=== PATIENT | female | born 1975 | race Caucasian/White ===

== ENCOUNTER 2016-09-14 12:12 | Emergency (ER) | payer OTHER ==
[2016-09-14 13:59] LABS: RED BLOOD COUNT 4.47 M/UL (4.00-5.10); WHITE BLOOD COUNT 8.1 K/UL (4.5-11.0)
[2016-09-14 14:15] LABS: BUN/CREATININE RATIO 16 (0-10)
== END 2016-09-14 15:20 | disposition home or self-care (01) ==
LOC: ER1 12:12
PROVIDERS: Nurse Practitioner Family
DX: J40 Bronchitis, not specified as acute or chronic (principal); B34.9 Viral infection, unspecified; F17.210 Nicotine dependence, cigarettes, uncomplicated; Z21 Asymptomatic human immunodeficiency virus [HIV] infection status; Z79.899 Other long term (current) drug therapy; Z88.5 Allergy status to narcotic agent
CPT/HCPCS: 71020; 80053; 81001; 84703; 85025; 87081; 87086; 87880; 99283

== ENCOUNTER 2021-01-13 21:56 | Inpatient (IN) | payer OTHER ==
[~2021-01-13] VITALS: Ht 154.9 cm; Wt 63.2 kg
[~2021-01-13 21:56] MED LIST: BACTRIM DS TAB1 EACH PO; FLAGYL500 MG PO; NAPROSYN500 MG PO; NORFLEX 100 MG100 MG PO; VIBRAMYCIN100 MG PO; Voltaren Gel 1 % TOP; ZOFRAN4 MG PO
[2021-01-13 22:55] LABS: HEMOGLOBIN 12.9 gm/dl (12.3-15.3); RED BLOOD COUNT 4.38 M/UL (4.00-5.10); WHITE BLOOD COUNT 7.8 K/UL (4.5-11.0)
[2021-01-13 23:10] LABS: BUN/CREATININE RATIO 13 (0-10)
[2021-01-15 08:55] LABS: RED BLOOD COUNT 3.58 M/UL (4.00-5.10); WHITE BLOOD COUNT 4.8 K/UL (4.5-11.0)
[2021-01-15 08:56] LABS: HEMOGLOBIN 10.4 gm/dl (12.3-15.3)
[2021-01-15 09:10] LABS: % CD 4 POS. LYMPH. 2.2 % (30.8-58.5); ABSOLUTE CD 4 HELPER 22 /uL (359-1519); BASOS 0 % (Not Estab.); EOS 2 % (Not Estab.); EOS (ABSOLUTE) 0.1 x10E3/uL (0.0-0.4); HEMOGLOBIN 11.7 g/dL (11.1-15.9); IMMATURE GRANULOCYTES 0 % (Not Estab.); LYMPHS 12 % (Not Estab.); MCH 28.5 pg (26.6-33.0); MCHC 32.5 g/dL (31.5-35.7); MCV 88 fL (79-97); MONOCYTES 7 % (Not Estab.); MONOCYTES(ABSOLUTE) 0.6 x10E3/uL (0.1-0.9); NEUTROPHILS 79 % (Not Estab.); NEUTROPHILS (ABSOLUTE) 6.5 x10E3/uL (1.4-7.0); PLATELETS 241 x10E3/uL (150-450); RBC 4.11 x10E6/uL (3.77-5.28); RDW 13.4 % (11.7-15.4); WBC 8.2 x10E3/uL (3.4-10.8)
[2021-01-15 09:27] LABS: BUN/CREATININE RATIO 13 (0-10)
[2021-01-15] MEDS ORDERED: LEVOFLOXACIN500 MG PO (11:35)
== END 2021-01-15 14:00 | disposition home or self-care (01) | DRG 690 ==
LOC: ER1 21:56 → CDU 01-14 01:25 → PROG CARE 01-14 01:25
PROVIDERS: Emergency Medicine; Internal Medicine; Physician Assistant; ADMIT Internal Medicine
DX: N10 Acute pyelonephritis (principal); Z21 Asymptomatic human immunodeficiency virus [HIV] infection status; J44.9 Chronic obstructive pulmonary disease, unspecified; Z20.822 Contact with and (suspected) exposure to COVID-19; F15.10 Other stimulant abuse, uncomplicated; F17.200 Nicotine dependence, unspecified, uncomplicated; Z90.710 Acquired absence of both cervix and uterus; Z82.49 Family history of ischemic heart disease and other diseases of the circulatory system
CPT/HCPCS: 36415; 71045; 80053; 80307; 81001; 82550; 82553; 83605; 83690; 83874; 84484; 85025; 86140; 86361; 87040; 87077; 87086; 87186; 96374; 96375; 99285; J0696; J1885; J2405; J7030; Q9967; U0002

== ENCOUNTER 2021-03-21 01:30 | Emergency (ER) | payer OTHER ==
[~2021-03-21 01:30] MED LIST changes: +LEVOFLOXACIN500 MG PO
== END 2021-03-21 02:40 | disposition home or self-care (01) ==
LOC: ER1 01:30
DX: S61.511A Laceration without foreign body of right wrist, initial encounter (principal); B20 Human immunodeficiency virus [HIV] disease; F17.210 Nicotine dependence, cigarettes, uncomplicated; Z90.710 Acquired absence of both cervix and uterus; Z88.1 Allergy status to other antibiotic agents; Z88.5 Allergy status to narcotic agent; Z88.8 Allergy status to other drugs, medicaments and biological substances; W26.8XXA Contact with other sharp object(s), not elsewhere classified, initial encounter
CPT/HCPCS: 73110; 99283